=== PATIENT | female | born 1940 | race Caucasian/White ===

== ENCOUNTER 2019-02-06 07:30 | Outpatient (CLI) | payer OTHER | END 2019-02-06 15:00 | disposition home or self-care (01) | LOC: TOM 07:30 | DX: M25.511 Pain in right shoulder (principal) ==

== ENCOUNTER 2019-03-20 06:33 | Outpatient (CLI) | payer OTHER | END 2019-03-20 06:41 | disposition home or self-care (01) | LOC: LAB 06:33 | DX: N28.89 Other specified disorders of kidney and ureter (principal) ==

== ENCOUNTER → 2019-03-25 | Outpatient (CLI) | payer OTHER | END | disposition home or self-care (01) | LOC: NUCLEAR 11:00 | DX: M81.0 Age-related osteoporosis without current pathological fracture (principal) ==